=== PATIENT | female | born 1945 | race Caucasian/White ===

== ENCOUNTER 2020-09-13 18:45 | Emergency (ER) | payer MEDICARE, OTHER ==
[~2020-09-13] VITALS: Ht 160 cm; Wt 99.8 kg
[2020-09-13] MEDS ORDERED: ROSU5 PO (18:50)
[2020-09-13] MEDS ORDERED: SERT25 (18:50)
[2020-09-13] MEDS ORDERED: CARV6.25 (18:50)
[2020-09-13] MEDS ORDERED: TRAM50 (18:50)
[2020-09-13] MEDS ORDERED: EUTHYROX125 MCG PO (18:50)
[2020-09-13] MEDS ORDERED: LOSA25 PO (18:50)
[2020-09-13] MEDS ORDERED: ESOM20 (18:50)
[2020-09-13] MEDS ORDERED: NORT25 (18:51)
[2020-09-13] MEDS ORDERED: EZET10 (18:51)
== END 2020-09-13 20:25 | disposition home or self-care (01) ==
LOC: ER 18:45
DX: S00.03XA Contusion of scalp, initial encounter (principal); V00.811A Fall from moving wheelchair (powered), initial encounter
CPT/HCPCS: 99283